=== PATIENT | female | born 1945 | race Caucasian/White ===

== ENCOUNTER 2019-06-13 11:12 | Emergency (ER) | payer MEDICARE ==
[2019-06-13 11:43] VITALS: BP 148/78
--- NOTE | 2019-06-13 11:55 | UC ---
Respiratory Complaint HPI - HPI Summary HPI Summary: 73-year-old woman comes in with a chief complaint of cough chest congestion and rhinorrhea. Started 3 weeks ago. [place]pine like it would go away and it has not. She does have asthma and has been using her inhaled steroid. She reports she's allergic to albuterol also cannot use that. Rhinorrhea is green she does have some sinus pressure. - History of Current Complaint Chief Complaint: UCRespiratory Stated Complaint: COUGH/SOB Time Seen by Provider: 06/13/19 11:35 Pain Intensity: 0 - Allergies/Home Medications Allergies/Adverse Reactions: Allergies Allergy/AdvReac Type Severity Reaction Status Date / Time albuterol Allergy Difficulty Verified 06/13/19 11:33 Breathing amoxicillin Allergy Hives Verified 06/13/19 11:33 Penicillins Allergy Hives Verified 06/13/19 11:33 Sulfa (Sulfonamide Allergy See Comment Verified 06/13/19 11:33 Antibiotics) Home Medications: Home Medications Fluticasone-Salmeterol 100-50* [Advair Diskus 100-50*] 1 puff INH BID 06/13/19 [ History Confirmed 06/13/19] Multivitamin [Multivitamins] 1 cap PO DAILY 06/13/19 [History Confirmed 06/13/19 ] Spironolactone TAB* [Aldactone TAB*] 25 mg PO DAILY 06/13/19 [History Confirmed 06/13/19] guaiFENesin ER TAB [Mucinex*] 600 mg PO BID PRN 06/13/19 [History Confirmed 08/31] PMH/Surg Hx/FS Hx/Imm Hx Previously Healthy: Yes - edema Respiratory History: Asthma - Surgical History Surgical History: Yes Surgery Procedure, Year, and Place: tonsilectomy - Family History Known Family History: Positive: Non-Contributory - Social History Alcohol Use: None Substance Use Type: None Smoking Status (MU): Never Smoked Tobacco Review of Systems All Other Systems Reviewed And Are Negative: Yes Constitutional: Positive: Other - see hpi Skin: Positive: Negative Eyes: Positive: Negative ENT: Positive: Ear Ache, Nasal Discharge, Sinus Congestion, Sinus Pain/ Tenderness Respiratory: Positive: Shortness Of Breath, Cough, Other - see hpi Cardiovascular: Positive: Negative Gastrointestinal: Positive: Negative Motor: Positive: Negative Neurovascular: Positive: Negative Musculoskeletal: Positive: Edema - chronic,no change Neurological: Positive: Negative Psychological: Positive: Negative Is Patient Immunocompromised?: No Physical Exam Triage Information Reviewed: Yes Appearance: Well-Appearing, No Pain Distress Vital Signs: Initial Vital Signs Temp 98.6 F 06/13/19 11:36 Pulse 86 06/13/19 11:36 Resp 18 06/13/19 11:36 BP 148/78 06/13/19 11:36 Pulse Ox 96 06/13/19 11:36 Vital Signs Reviewed: Yes Eye Exam: Normal Eyes: Positive: Conjunctiva Clear ENT: Positive: Pharyngeal erythema, Nasal congestion, Nasal drainage, TM red - rt Neck: Positive: Supple Respiratory: Positive: Lungs clear, Normal breath sounds, No respiratory distress Cardiovascular: Positive: RRR Musculoskeletal: Positive: Edema @ - Bilateral mild, patient reports is chronic. Neurological: Positive: Alert Psychological: Positive: Age Appropriate Behavior Skin Exam: Normal Respiratory Course/Dx - Course Course Of Treatment: Package Dye Stand Loader: Alex Khan F ([id number]) Cnc Mechanic: TATI, ( NUANCE) Report Date: 06/13/2019 12:12:00 Report Status: Final ====== Start of Report Content Patient Name: JUAN SMALLWOOD Medical Record#: [id number] Ordering Physician: Eugene Molina MD Acct.#: [id number] : 02/1946 Age: 73 Sex: F Location: [facility] Exam Date: 06/13/19 1150 ADM Status: REG ER Order Information: CHEST PA LAT 2 VWS Accession Number: [id number] CPT: 28042 INDICATION: Cough and congestion for 3 weeks. COMPARISON : There are no relevant prior studies available for comparison. TECHNIQUE: Dual- energy PA and lateral views of the chest were obtained. FINDINGS: The heart is within normal limits in size. Mediastinal and hilar contours appear within normal limits. There is mild increased density lateral to the left heart border likely representing a prominent pericardial fat pad. The lungs are otherwise clear and mildly hyperinflated. No pleural effusion is seen. IMPRESSION: NO EVIDENCE FOR ACTIVE CARDIOPULMONARY DISEASE. <Electronically signed by Alex Khan MD in OV> [id number] Dictated By: Alex Khan MD Dictated Date/Time: 06/13/191206 Transcribed Date/Time: 06/13/191206 Copy to: CC:Lisa DONALD; Eugene Molina MD Imaging - [facility] Imaging - [facility] [address] [place] [id number] [address] [address] ph ([phone]) ph ) ph ([phone]) End of Report Content I discussed the x-rays with the patient. Patient reports a azithromycin in the past has helped her. She's had 3 weeks of symptoms. Follow-up with primary care doctor get reevaluated sooner if worse or any questions concerns. - Differential Dx/Diagnosis Provider Diagnosis: Bronchitis, Asthma Discharge ED - Sign-Out/Discharge Documenting (check all that apply): Patient Departure All imaging exams completed and their final reports reviewed: Yes - Discharge Plan Condition: Stable Disposition: HOME Prescriptions: Azithromyxin DEEPAK (NF) [Z-Deepak (Zithromax) 250 mg tabs #6] 2 tab PO .TODAY, THEN 1 DAILY #6 tab Patient Education Materials: Acute Bronchitis (ED) Referrals: Lisa Live PA [Primary Care Provider] - Additional Instructions: FOLLOW UP WITH YOUR DOCTOR IF NOT COMPLETELY IMPROVED. GET REEVALUATED SOONER IF NOT IMPROVING OR WORSE OR ANY QUESTIONS OR CONCERNS. - Billing Disposition and Condition Condition: STABLE Disposition: Home
== END 2019-06-13 12:27 | disposition home or self-care (01) ==
LOC: UCCORT 11:12
DX: J45.909 Unspecified asthma, uncomplicated (principal); H92.09 Otalgia, unspecified ear; Z79.899 Other long term (current) drug therapy; R09.81 Nasal congestion; Z88.0 Allergy status to penicillin; Z88.8 Allergy status to other drugs, medicaments and biological substances; Z88.2 Allergy status to sulfonamides; Z79.51 Long term (current) use of inhaled steroids
CPT/HCPCS: 71046; 99212; G0463